=== PATIENT | male | born 2000 | race Caucasian/White ===

== ENCOUNTER → 2021-07-04 10:25 | Outpatient (CLI) | payer BC, SELFPAY ==
--- NOTE | 2021-07-04 10:45 | RAD_ITS ---
STUDY: X-RAY - UNILATERAL RIBS ( LEFT ) WITH CHEST REASON FOR EXAM: Male, 21 years old. RIB INJURY TECHNIQUE - RIBS: 4 view(s) of the ribs. TECHNIQUE - CHEST: Frontal view COMPARISON: None. FINDINGS - RIBS: Normal visualized ribs without a demonstrated fracture. FINDINGS - CHEST: The lungs are clear and expanded. There is no demonstrated pleural abnormality. Normal size heart. Normal mediastinum and sd. Normal visualized pulmonary arteries. Normal visualized aortic arch and descending thoracic aorta. Normal visualized thoracic spine. Normal visualized ribs, clavicles, and shoulders. There is no demonstrated abnormality of the visualized soft tissue structures of the upper abdomen. RAD/Ribs Uni Min 3V w/PA Chest IMPRESSION: RIBS: Normal x-ray examination of the ribs. CHEST: Normal x-ray examination of the chest. Electronically Signed: Darryl Gutierrez DO at 11:47 EDT Tel [phone], Service support ,
--- NOTE | 2021-07-04 10:45 | RAD_ITS ---
STUDY: X-RAY - LEFT SCAPULA REASON FOR EXAM: Male, 21 years old. SHOULDER INJURY TECHNIQUE: 3 image(s) of the scapula were obtained. COMPARISON: None. FINDINGS: Normal scapula, including the osseous glenoid rim, acromion, scapular neck, spine, coracoid process, and visualized body. Normal glenohumeral articulation. Normal acromioclavicular joint. Normal visualized humeral head. Normal visualized pulmonary apex. There is no demonstrated scapular fracture. RAD/Scapula IMPRESSION: Normal plain film x-ray examination of the left scapula. Electronically Signed: Stan Lopez MD at 11:47 EDT , Service support ,
== END ==
DX: S49.92XA Unspecified injury of left shoulder and upper arm, initial encounter (principal); S29.9XXA Unspecified injury of thorax, initial encounter; X58.XXXA Exposure to other specified factors, initial encounter; Y93.9 Activity, unspecified; Y92.9 Unspecified place or not applicable; Y99.9 Unspecified external cause status
CPT/HCPCS: 71101; 73010